=== PATIENT | male | born 1955 | race Caucasian/White ===

== ENCOUNTER → 2017-01-24 | Outpatient (CLI) | payer OTHER ==
--- NOTE | 2017-01-24 16:21 | RAD ---
Indication: Back pain radiating down leg. Technique: 3 views of the lumbar spine are submitted for review. No comparison is available. Findings: There is grade 1 retrolisthesis at L5-S1 which may be secondary to facet hypertrophy. There is otherwise no malalignment. There is facet hypertrophy at L5-S1 and L4-L5. There is endplate spurring throughout the lumbar spine. There is no fracture. Vertebral body height is maintained. There is narrowing of the interspace at L5-S1. 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 Impression: Degenerative changes in the lumbar spine are greatest at the lumbosacral junction.
== END | disposition home or self-care (01) ==
LOC: PMG 16:00
PROVIDERS: ATTEND Nurse Practitioner Family
DX: M47.897 Other spondylosis, lumbosacral region (principal); M53.86 Other specified dorsopathies, lumbar region
CPT/HCPCS: 72100

== ENCOUNTER → 2017-06-06 | Outpatient (CLI) | payer OTHER | END | disposition home or self-care (01) | LOC: SURG 11:45 | PROVIDERS: ATTEND Anesthesiology | DX: M54.16 Radiculopathy, lumbar region (principal); M51.36 Other intervertebral disc degeneration, lumbar region; M47.816 Spondylosis without myelopathy or radiculopathy, lumbar region | CPT/HCPCS: 99203 ==

== ENCOUNTER → 2017-07-11 | Outpatient (CLI) | payer OTHER ==
[~2017-07-11] MED LIST: 0.9 % SODIUM CHLORIDE 10 ML VIAL ONE; DEXAMETHASONE SOD PHOS 4 MG/ML VIAL ONE; IOHEXOL 300 MG/ML 50 ML VIAL. ONE; LIDOCAINE 1% PF 30 ML VIAL. ONE
== END ==
LOC: SURG 14:19
PROVIDERS: ATTEND Anesthesiology
DX: M51.16 Intervertebral disc disorders with radiculopathy, lumbar region (principal); M47.816 Spondylosis without myelopathy or radiculopathy, lumbar region; Z72.0 Tobacco use; I10 Essential (primary) hypertension; Z98.890 Other specified postprocedural states; Z86.39 Personal history of other endocrine, nutritional and metabolic disease
CPT/HCPCS: 64483; 64484; J1100; J2001; Q9967

== ENCOUNTER → 2017-07-12 | Outpatient (CLI) | payer OTHER ==
--- NOTE | 2017-07-12 15:28 | RAD ---
Left hip, 3 views, 07/12/2017: HISTORY: Hip pain There is patchy sclerosis involving the superior aspect of the left femoral head. There is an underlying transverse lucency with cortical defects compatible with a fracture, likely due to underlying avascular necrosis. There are moderate degenerative changes at the left hip joint with joint space narrowing and marginal spurring. Surgical clips are projected over the scrotal region. IMPRESSION: Deformity and fracture of the superior aspect of the left femoral head probably secondary to underlying avascular necrosis. A neoplastic etiology is less likely. Electronically signed by: Jesus Castaneda MD (07/12/2017 3:25 PM) [facility]
== END | disposition home or self-care (01) ==
LOC: DXRAD 07:31
PROVIDERS: ATTEND Anesthesiology
DX: M16.12 Unilateral primary osteoarthritis, left hip (principal); M76.892 Other specified enthesopathies of left lower limb, excluding foot
CPT/HCPCS: 73502